=== PATIENT | female | born 1990 | race Caucasian/White ===

== ENCOUNTER 2021-01-13 16:37 | Emergency (ER) | payer MEDICAID ==
[~2021-01-13] VITALS: Ht 162.6 cm; Wt 69.0 kg
[2021-01-13 16:47] VITALS: BP 114/77
== END 2021-01-14 00:25 | disposition left against medical advice (07) ==
LOC: ER 16:37 → EDBD 16:37 → ER 01-14 00:25
DX: F10.10 Alcohol abuse, uncomplicated (principal); Z53.21 Procedure and treatment not carried out due to patient leaving prior to being seen by health care provider; Y90.9 Presence of alcohol in blood, level not specified